=== PATIENT | female | born 1980 ===

== ENCOUNTER 2018-11-14 17:39 | Emergency (ER) | payer OTHER ==
[~2018-11-14] VITALS: Ht 152.4 cm; Wt 65.8 kg
[2018-11-14] MEDS ORDERED: high cholesterol med (18:17)
--- NOTE | 2018-11-14 18:22 | ED Neurological Problem ---
General Chief Complaint: Neurological Problems Stated Complaint: R SIDE FACIAL DROOP Nursing Triage Note: PT AMB TO [facility] 2 WITH COMPLAINT OF RIGHT SIDE FACIAL DROOPING, DIFFERENT SIZE EYES, AND PAIN BEHIND EAR. STATES STARTED THIS AM. Nursing Sepsis Screen: No Definite Risk Source: patient Exam Limitations: no limitations History of Present Illness Date Seen by Provider: Nov 14, 2018 Time Seen by Provider: 18:21 Initial Comments To ER per private vehicle from [facility] where she presented with some alleged right-sided facial numbness intermittently as well as a headache. When using the translation line, patient reports to me it's actually left-sided facial numbness and preceded by a pain posterior and anterior to the left ear, facial numbness and drooping on the left side that began yesterday. No fevers or chills and no other symptoms. Timing/Duration: 24 hours Severity: moderate Associated Symptoms: denies symptoms Allergies and Home Medications Allergies Coded Allergies: hydrocodone (Verified Allergy, Unknown, 11/14/18) Patient Home Medication List Home Medication List Reviewed: Yes Review of Systems Review of Systems Constitutional: see HPI Eyes: No Symptoms Reported Ears, Nose, Mouth, Throat: no symptoms reported Respiratory: no symptoms reported Cardiovascular: no symptoms reported Genitourinary: no symptoms reported Musculoskeletal: no symptoms reported Psychiatric/Neurological: See HPI Past Qnozths-Qxpjaw-Uiipsh Hx Patient Social History Alcohol Use: Denies Use Recreational Drug Use: No Smoking Status: Never a Smoker Recent Foreign Travel: No Contact w/Someone Who Travel: No Recent Infectious Disease Expo: No Recent Hopitalizations: No Immunizations Up To Date Tetanus Booster (TDap): Unknown Seasonal Allergies Seasonal Allergies: No Past Medical History Surgeries: Yes Section, Gallbladder Respiratory: No Cardiac: Yes High Cholesterol, Hypertension Neurological: No Genitourinary: No Gastrointestinal: No Musculoskeletal: No Endocrine: No HEENT: No Cancer: No Psychosocial: No Integumentary: No Physical Exam Vital Signs Vital Signs - First Documented 11/14/18 17:49 Pulse 86 Resp 17 B/P (MAP) 133/100 (111) Pulse Ox 97 O2 Delivery Room Air Capillary Refill : Less Than 3 Seconds Height, Weight, BMI Height: 5'0" Weight: 145lbs. oz. 65.614432dm; BMI Method:Stated General Appearance: WD/WN, no apparent distress HEENT: PERRL/EOMI, normal ENT inspection Neck: non-tender, full range of motion Respiratory: no respiratory distress, no accessory muscle use Gastrointestinal: normal bowel sounds, soft Neurologic/Psychiatric: alert, normal mood/affect, oriented x 3 Crainal Nerves: normal hearing, normal speech, PERRL Coordination/Gait: normal finger to nose, normal gait Motor/Sensory: no motor deficit, no sensory deficit Skin: normal color, warm/dry Lymphatic: No no adenopathy, No axilla node tender (R), No axilla node tender (L), No inguinal node tender (R), No inguinal node tender (L), No other There is no arm drift, she has a normal gait. She does have delayed blink reflex on the left much slower than the right. The left side of her face does droop and this includes the forehead, she is unable to wrinkle the left side of her forehead. 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 Progress/Results/Core Measures Results/Orders Vital Signs/I&O 11/14/18 17:49 Pulse 86 Resp 17 B/P (MAP) 133/100 (111) Pulse Ox 97 O2 Delivery Room Air Blood Pressure Mean: 111 Departure Impression Primary Impression: Preston's palsy Disposition: 01 HOME, SELF-CARE Condition: Stable Departure-Patient Inst. Decision time for Depature: 18:30 Referrals: [facility] (PCP/Family) Primary Care Physician Patient Instructions: Preston's Palsy Add. Discharge Instructions: 1. Follow-up with [facility] this week 2. Steroids and acyclovir as directed 3. All discharge instructions reviewed with patient and/or family. Voiced understanding. Scripts Acyclovir (Acyclovir) 800 Mg Tablet 800 MG PO TID, #21 TAB Prov: TEX RAMIRES APRN 11/14/18 Prednisone (Prednisone) 10 Mg Tab.ds.pk 10 MG PO DAILY, #42 EA Take 6 tabs(60mg)daily,decrease by 1 tab(10mg)every other day. Prov: TEX RAMIRES APRN 11/14/18 TEX RAMIRES APRN Nov 14, 2018 18:22
[2018-11-14] MEDS ORDERED: ACYC800T PO (18:32)
[2018-11-14] MEDS ORDERED: PRED10TA22 PO (18:32)
[2018-11-14 18:40] VITALS: BP 126/94
== END 2018-11-14 18:39 | disposition home or self-care (01) ==
LOC: ER 17:43
DX: G51.0 Bell's palsy (principal); I10 Essential (primary) hypertension; E78.00 Pure hypercholesterolemia, unspecified; Z88.5 Allergy status to narcotic agent